=== PATIENT | male | born 1940 | race African-American/Black ===

== ENCOUNTER → 2025-03-25 | Outpatient (BNVA) | payer MEDICARE, BC, SELFPAY ==
--- NOTE | 2025-03-25 19:30 | UCCONSULT_ITS ---
RE: RAVEN GUAJARDO : 1940 DATE OF CONSULTATION: 03/25/2025 CHIEF COMPLAINT: 1. BPH with urinary obstruction and LUTS, on tamsulosin 0.8 mg p.o. daily, finasteride 5 mg p.o. daily with IPSS score of 15/35. Quality of life due to symptom is 2/6. 2. Elevated PSA. The patient had an ultrasound-guided biopsy of the prostate gland done on 04/03/2022. Pathology is reviewed by me. It was a benign. Prostate gland volume is 53.18. 3. Phimosis. The patient was recommended dorsal slit. He had seen washing machine loader with the medication. He is getting better and he does not want dorsal slit. COMORBID CONDITIONS: 1. Hypertension. 2. Diabetes mellitus. 3. Coronary artery disease. 4. Obesity. HISTORY OF PRESENT ILLNESS: This is an 85-year-old gentleman. He has frequency of urination x3 at night, 5 times during the day with good stream. He has no history of hematuria, dysuria, urinary tract infection. The patient had phimosis. He was scheduled for dorsal slit. He went to the washing machine loader. He is doing fine. Declined permission for dorsal slit. He has no history of gross hematuria, dysuria, urinary tract infection. Past medical history, family history, review of systems, personal history, please refer to patient history form dated, 03/25/2025, it is in HPI, in EMR. PHYSICAL EXAMINATION: GENERAL: Condition is satisfactory. Orientation x3. HEENT: Normocephalic and atraumatic. Eyes: No anemia or jaundice. NECK: Supple. Trachea is central. Thyroid is not enlarged. EXTREMITIES: Revealed no edema, cyanosis or clubbing. VITAL SIGNS: Stable. They are in HPI, in EMR. CHEST: Symmetrical. HEART: Regular rate and rhythm. ABDOMEN: Obese. No masses. Liver, spleen, and kidney not palpable. No CVA tenderness. VARIOUS LABS: BUN is 19, creatinine is 1.5, GFR is 46. He is following up with PCP for the same. PSA on 11/24/2023 is 3.1. PLAN: 1. Diet and exercise counseling. 2. Refill on finasteride and tamsulosin is given. 3. Follow-up appointment in Urology office in one year or p.r.n. after another PSA. Follow-up with PCP PSA in one year. DT: 10:17:46 TT: 13:25:00 Ref: [id number] - TID: [id number]
== END | disposition home or self-care (01) ==
PROVIDERS: PCP Specialist; Referring Provider Specialist; Visit Provider Urology
DX: N40.1 Benign prostatic hyperplasia with lower urinary tract symptoms (principal); N13.8 Other obstructive and reflux uropathy; N47.1 Phimosis; I10 Essential (primary) hypertension; E11.9 Type 2 diabetes mellitus without complications; I25.10 Atherosclerotic heart disease of native coronary artery without angina pectoris; E66.9 Obesity, unspecified; Z68.35 Body mass index [BMI] 35.0-35.9, adult; E78.00 Pure hypercholesterolemia, unspecified
CPT/HCPCS: 81003; 99212; G0463

== ENCOUNTER → 2025-06-23 | Outpatient (CLI) | payer MEDICARE, BC, SELFPAY ==
--- NOTE | 2025-06-23 | XR_ITS ---
Examination: Bilateral hips, AP pelvis, 5 views Technique: AP, lateral views both hips, AP pelvis, 5 views Exam date and time: June 23, 2025, 1026 hrs. Indications: Bilateral hip pain beginning 3 years ago. Findings: Prominent osteopenia. No hip or pelvic fracture. Moderate bilateral hip osteoarthritis Impression: Moderate bilateral hip osteoarthritis
--- NOTE | 2025-06-23 10:14 | XR_ITS ---
Examination: Abdomen AP single view Technique: AP portable supine abdomen, single view Exam date and time: June 23, 2025, 10:22 AM Indications: Abdominal pain beginning 2 years ago. Findings: Moderate stool throughout the colon. No obstruction. No free air. Surgical clips upper right abdomen. Impression: Moderate stool throughout the colon.
[2025-06-23 11:38] LABS: Basophils # (Auto) 0.0 Thou/mm3 (0.0-0.2); Basophils % (Auto) 1 % (0-2.5); Eosinophils # (Auto) 0.2 Thou/mm3 (0.0-0.5); Eosinophils % (Auto) 4 % (0-10); Hematocrit 47.1 % (41.0-53.0); Hemoglobin 14.7 g/dL (13.5-16.0); Immature Granulocytes Auto 0.02 Thou/mm3 (0.00-0.00); Lymphocytes # (Auto) 1.8 Thou/mm3 (1.0-4.8); Lymphocytes % (Auto) 37 % (10-50); Mean Corpuscular HGB Conc 31.2 g/dl (31.0-37.0); Mean Corpuscular Hemoglobin 25.3 pg (25.0-35.0); Mean Corpuscular Volume 81 fL (80-100); Monocytes # (Auto) 0.6 Thou/mm3 (0.0-0.8); Monocytes % (Auto) 13 % (0-12); Neutrophils # (Auto) 2.1 Thou/mm3 (1.8-7.7); Neutrophils % (Auto) 45 % (37-80); Nucleated Red Blood Cell # 0.00 Thou/mm3 (0.00-0.00); Nucleated Red Blood Cell % 0 /100 WBC (0); Platelet Count 186 Thou/mm3 (140-440); RDW Standard Deviation 47.2 fL (35.1-43.9); Red Blood Count 5.82 Miln/mm3 (4.50-5.90); White Blood Count 4.7 Thou/mm3 (3.8-10.6)
[2025-06-23 11:51] LABS: Glucose Estimated Average 171 mg/dL (80-131); Hemoglobin A1C 7.6 % Hgb (4.8-6.0)
[2025-06-23 12:12] LABS: Alanine Aminotransferase 15 U/L (10-49); Albumin, Serum 4.1 gm/dL (3.4-4.8); Albumin/Globulin Ratio 1.8 (1.2-2.2); Alkaline Phosphatase 87 U/L (46-116); Anion Gap 8 (7-16); Aspartate Amino Transferase 18 U/L (0-34); BUN/Creatinine Ratio 18 Ratio (12-20); Bilirubin,Total 0.2 mg/dL (0.3-1.2); Blood Urea Nitrogen 25 mg/dL (9-23); Calcium 10.3 mg/dL (8.3-10.6); Calcium (Corrected) 10.3 mg/dL (8.5-10.1); Carbon Dioxide 28.4 mMol/L (20.0-31.0); Chloride 104 mMol/L (98-107); Creatinine (Component) 1.4 mg/dL (0.6-1.3); Globulin 2.3 gm/dL (2.3-3.5); Glucose 120 mg/dL (74-106); Osmolality,Calculated 284 (275-295); Potassium 4.8 mMol/L (3.4-5.1); Sodium 140 mMol/L (136-145); Total Protein 6.4 gm/dL (5.7-8.2); eGFR 50 See Note
== END | disposition home or self-care (01) ==
PROVIDERS: PCP Specialist; Referring Provider Specialist; Visit Provider Specialist
DX: K59.00 Constipation, unspecified (principal); M16.0 Bilateral primary osteoarthritis of hip; E11.9 Type 2 diabetes mellitus without complications; E78.5 Hyperlipidemia, unspecified
CPT/HCPCS: 36415; 73522; 74018; 80053; 83036; 85025

== ENCOUNTER → 2025-07-21 | Outpatient (CLI) | payer MEDICARE, BC, SELFPAY ==
--- NOTE | 2025-07-21 14:00 | XR_ITS ---
Examination: CT bilateral hips, without contrast. 2-D sagittal reconstructions. 2-D coronal reconstructions. 3-D reconstructions. Date and time of exam:July 21, 2025, 1416 hours INDICATIONS: Bilateral hip pain beginning one month ago CTDI: vol (mGy):10.7 DLP: (mGycm):408 Technique: Multiple 1.25 mm axial sections of the bilateral hips without intravenous contrast have been obtained. 2-D sagittal and coronal reconstructions have been obtained. 3-D reconstructions have been obtained. Low dose protocols were performed. One or more of the following dose reduction techniques were used; automated exposure control, adjustment of the mA and/or KV according to patient size, use of iterative reconstruction technique. Findings: Abdominal aortic calcification no aneurysmal dilatation Normal appendix Colonic diverticulosis, no diverticulitis Contracted urinary bladder Prostatomegaly, AP dimension 5.1 cm Contracted urinary bladder with urinary bladder wall thickening up to 7 mm Fat-containing inguinal hernias Moderate narrowing hip joints No hip fractures Bones of the pelvis intact IMPRESSION: Moderate narrowing hip joints Colonic diverticulosis, no diverticulitis Normal appendix Significant prostatomegaly Urinary bladder wall thickening up to 7 mm, consider early urinary tract outflow obstruction secondary to the prostatomegaly, cystitis
== END | disposition home or self-care (01) ==
PROVIDERS: Referring Provider Specialist; Visit Provider Specialist
DX: M25.852 Other specified joint disorders, left hip (principal); M25.851 Other specified joint disorders, right hip; K57.30 Diverticulosis of large intestine without perforation or abscess without bleeding
CPT/HCPCS: 73700

== ENCOUNTER → 2025-07-27 | Outpatient (CLI) | payer MEDICARE, BC, SELFPAY ==
--- NOTE | 2025-07-27 13:00 | XR_ITS ---
Examination: MRI lumbar spine without contrast Date and time of exam: July 27, 2025, 1321 hours INDICATIONS: Low back pain radiating to both hips and legs several years Technique: Multiple MRI axial and sagittal sections lumbar spine. Sagittal T2-weighted images, TR 3500, TE 118 T1 weighted transverse sections, TR 688 T8.5, T2-weighted sagittal sections T1 weighted sagittal sections TR 621, TE 30 T2 axial sections, TR 4, 190, TE 84. Findings: Adequate alignment lumbar vertebral bodies on the lateral view Moderate disc narrowing L3-L4, L4-L5 No lumbar fracture No spondylolisthesis L5-S1 no disc protrusion L4-L5 6 mm central lumbar disc bulge with facet arthropathy and thickening of ligamentum flavum L3-L4 6 mm left 5 mm right foraminal disc bulges but no ganglionic compressions L2-L3 no disc protrusion L1-L2 no disc protrusion IMPRESSION: L4-L5 6 mm central lumbar disc bulge with moderate overall spinal stenosis
== END | disposition home or self-care (01) ==
LOC: SMRI 13:05
PROVIDERS: PCP Specialist; Referring Provider Specialist; Visit Provider Specialist
DX: M51.360 Other intervertebral disc degeneration, lumbar region with discogenic back pain only (principal); M48.061 Spinal stenosis, lumbar region without neurogenic claudication
CPT/HCPCS: 72148

== ENCOUNTER → 2025-09-28 | Outpatient (CLI) | payer MEDICARE, BC, SELFPAY ==
[2025-09-28 13:23] LABS: Prostate Specific Antigen 2.51 ng/mL (0-4.00)
== END | disposition home or self-care (01) ==
LOC: COPL 11:47
PROVIDERS: PCP Specialist; Referring Provider Urology; Visit Provider Urology
DX: N40.1 Benign prostatic hyperplasia with lower urinary tract symptoms (principal)
CPT/HCPCS: 36415; 84153

== ENCOUNTER → 2025-10-01 | Outpatient (BNVA) | payer MEDICARE, BC, SELFPAY | END | disposition home or self-care (01) | PROVIDERS: PCP Specialist; Visit Provider Urology | DX: R31.9 Hematuria, unspecified (principal); N40.1 Benign prostatic hyperplasia with lower urinary tract symptoms; N13.8 Other obstructive and reflux uropathy; I10 Essential (primary) hypertension; E11.9 Type 2 diabetes mellitus without complications; I25.10 Atherosclerotic heart disease of native coronary artery without angina pectoris; E66.9 Obesity, unspecified; Z68.35 Body mass index [BMI] 35.0-35.9, adult | CPT/HCPCS: 81003; 99212; G0463 ==